=== PATIENT | female | born 1960 | race Caucasian/White ===

== ENCOUNTER 2018-03-20 05:03 | Inpatient (IN) | payer BC ==
[2018-03-15 13:19] VITALS: BMI 34.2
[~2018-03-20 05:03] MED LIST: ceFAZolin SODIUM 1 GM VIAL IVPB ONE
[2018-03-20] MEDS ORDERED: ROPIVACAINE HCL 0.5% 30ML VIAL ONE (08:41)
[2018-03-20] MEDS ORDERED: MIDAZOLAM HCL 2 MG/2 ML SINGLE DOSE VIAL ONE ×2 (08:44)
--- NOTE | 2018-03-20 08:57 | HP ---
History & Physical Update - History History: No Change - Physical Physical: No Change - Assessment Assessment: No Change - Plan Plan: No Change (since visit on 03/15/18)
[2018-03-20] MEDS ORDERED: CEFAZOLIN 2 GM in DEXTROSE 5%-WATER - 100 ML IVPB ONE (08:59)
[2018-03-20] MEDS ORDERED: fentaNYL CITRATE 250 MCG/5 ML VIAL ONE ×2 (09:17→09:49)
[2018-03-20] MEDS ORDERED: LIDOCAINE HCL/PF 2% SDV 5ML VIAL ONE (09:17)
[2018-03-20] MEDS ORDERED: PROPOFOL 20 ML ONE ×2 (09:18)
[2018-03-20] MEDS ORDERED: ROCURONIUM BROMIDE 50 MG/5 ML VIAL ONE ×2 (09:18→10:12)
[2018-03-20] MEDS ORDERED: ceFAZolin SODIUM 1 GM VIAL ONE ×2 (09:26→17:15)
[2018-03-20] MEDS ORDERED: ceFAZolin SODIUM 1 GM VIAL IVPB ONE (09:29)
[2018-03-20] MEDS ORDERED: NEOSTIGMINE METHYLSULFATE 0.5 MG/ML - 10 ML MDV ONE (09:34)
[2018-03-20] MEDS ORDERED: DEXAMETHASONE SOD PHOSPHATE 4 MG/1 ML VIAL ONE (09:34)
[2018-03-20] MEDS ORDERED: GLYCOPYRROLATE 0.2 MG/1 ML VIAL ONE (09:34)
[2018-03-20] MEDS ORDERED: ONDANSETRON 4 MG/2 ML VIAL IVPUSH PRN (12:35)
[2018-03-20] MEDS ORDERED: LACTATED RINGERS SOLUTION 1,000 ML IV SCH (12:45)
[2018-03-20] MEDS ORDERED: HYDROmorphone *PCA* 10MG/50ML DISP.SYRIN PCA SCH (12:45)
[2018-03-20] MEDS ORDERED: LACTATED RINGERS SOLUTION 1,000 ML/1,000 ML INFUS.BAG IV SCH (13:15)
--- NOTE | 2018-03-20 13:29 | OP ---
Operative Note - Note: Operative Date: 03/20/18 Pre-Operative Diagnosis: abdominal pain. leiomyoma uterus Operation: Total Abdominal Hysterectomy Bilateral salpingectomy-oorphoectomy Findings: Ovarian/ tubal mass Post-Operative Diagnosis: Other (ovarian and tubal mass frozen pathology suspicious for malignancy) Surgeon: Zulma Elizalde Appliances Sample Maker: Estela Solano Anesthesiologist/AIR HOSE COUPLER: Jessica Olivia Anesthesia: General Specimens Removed: uterus. bilateral fallopian tubes and overies Estimated Blood Loss (mls): 1,700 Drains, Volume Out (mls): 400 (pathak ) Blood Volume Replaced (mls): 2 (Units PRBC) Fluid Volume Replaced (mls): 4,500 Operative Report Dictated: Yes
--- NOTE | 2018-03-20 13:38 | SURG ---
Surgery Operations Welder Note Operations Welder: Estela Solano PA-C Date of Service: 03/20/18 Diagnosis: abdominal pain leiomyoma of uterus Procedure: Total abdominal hysterectomy bilateral salpingectomy-oorphorectomy I was present for the entirety of the operative procedure. For further detail, please refer to operative report. Visit type - Case Type Case Type: Scheduled - Emergency Emergency Visit: No - New patient This patient is new to me today: Yes Date on this admission: 03/20/18
[2018-03-20] MEDS ORDERED: DEXTROSE 5%-WATER - 50 ML IVPB ONE (17:15)
[2018-03-20] MEDS: CEFAZOLIN 1 GM in DEXTROSE 5%-WATER - 50 ML IVPB SCH (17:41)
[2018-03-20 18:43] LABS: HEMATOCRIT 34.1 % (32.4-45.2); HEMOGLOBIN 11.3 GM/dL (10.7-15.3); MCH 28.7 pg (25.7-33.7); MCHC 33.3 g/dl (32.0-36.0); MEAN CELL VOLUME 86.3 fl (80-96); MEAN PLT VOLUME 7.9 fl (7.5-11.1); PLATELET COUNT 250 K/MM3 (134-434); RBC 3.95 M/mm3 (3.60-5.2); RDW 14.7 % (11.6-15.6); WHITE BLOOD COUNT 14.4 K/mm3 (4.0-10.0)
[2018-03-20 19:02] LABS: ALBUMIN 2.6 g/dl (3.4-5.0); ALK PHOS 70 U/L (45-117); ANION GAP 6 (8-16); BILIRUBIN,TOTAL 0.9 mg/dL (0.2-1.0); BLOOD UREA NITROGEN 14 mg/dL (7-18); CALCIUM 7.5 mg/dL (8.5-10.1); CHLORIDE 105 mmol/L (98-107); CO2 28 mmol/L (21-32); CREATININE 0.8 mg/dL (0.55-1.02); GLUCOSE,RANDOM 138 mg/dL (74-106); POTASSIUM 5.3 mmol/L (3.5-5.1); SGOT/AST 13 U/L (15-37); SGPT/ALT 18 U/L (12-78); SODIUM 139 mmol/L (136-145); TOT PROT 5.4 g/dl (6.4-8.2)
[2018-03-20] MEDS: ATORVASTATIN CA 10 MG TABLET (FP) PO SCH (22:11)
[2018-03-21] MEDS ORDERED: DEXTROSE 5%-WATER - 50 ML IVPB ONE (01:15)
[2018-03-21] MEDS ORDERED: ceFAZolin SODIUM 1 GM VIAL ONE (01:15)
[2018-03-21] MEDS: CEFAZOLIN 1 GM in DEXTROSE 5%-WATER - 50 ML IVPB SCH (01:21)
[2018-03-21 08:32] LABS: HEMATOCRIT 26.4 % (32.4-45.2); MCH 29.4 pg (25.7-33.7); MCHC 33.9 g/dl (32.0-36.0); MEAN CELL VOLUME 86.7 fl (80-96); MEAN PLT VOLUME 7.9 fl (7.5-11.1); PLATELET COUNT 172 K/MM3 (134-434); RBC 3.05 M/mm3 (3.60-5.2); RDW 15.1 % (11.6-15.6)
--- NOTE | 2018-03-21 09:00 | PN ---
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 No anesthesia complications.
--- NOTE | 2018-03-21 09:43 | PN ---
Progress Note (short form) - Note Progress Note: Surgery POD #1 BRITTANY BSO patient seen and examined at bedside with no c/o. Patient states pain is controlled on MEAT CLERK and she only has discomfort with movement. She is tolerating her clear diet and denies any CP, SOB, N/V/ Fever or chills. Vital Signs Temp 98.5 F 03/21/18 06:00 Pulse 75 03/21/18 06:00 Resp 18 03/21/18 06:00 BP 89/46 03/21/18 06:00 Pulse Ox 100 03/20/18 15:00 Intake & Output 03/20/18 03/20/18 03/21/18 11:59 23:59 11:59 Intake Total 5200 1350 1450 Output Total 1700 750 500 Balance 3500 600 950 Intake: IV 4500 1000 1100 LACTATED RINGERS SOLUTION 500 1100 1,000 ml In 1,000 ml @ 100 mls/hr IV ASDIR SHON Rx#:[id number] IVPB 50 50 Oral 300 300 Blood Product 700 Output: Urine 750 500 Waddell 100 500 Estimated Blood Loss 1700 Other: Voiding Method Toilet CBC, BMP 03/21/18 07:15 PE: A&Ox3, NAD unlabored resp on RA abdomen: obese, soft non-distended with mild diffuse TTP throughout appropriate to status. incision c/d/i with steri strips intact and no evidence of active bleeding or d/c B/L LE compartments soft, supple and non-tender to palpation with + pedal pulses. Problem List - Problems (1) S/P BRITTANY-BSO (total abdominal hysterectomy and bilateral salpingo- oophorectomy) Assessment/Plan: POD#1 patient doing well with acute blood loss anemia slightly hypertensive but stable. 1) D/c MEAT CLERK start oral pain meds 2) Rpt Labs in the afternoon- trend H&H 3) Continue DVT prophylaxis b/l teds, scds and Lovenox 4) OOB as tolerated with assist 5) Hold antihypertensives while pressure remains low 6) Plan to advance diet once passing flatus Evaluation and plan discussed with Dr Elizalde Code(s): Z90.710 - ACQUIRED ABSENCE OF BOTH CERVIX AND UTERUS; Z90.722 - ACQUIRED ABSENCE OF OVARIES, BILATERAL; Z90.79 - ACQUIRED ABSENCE OF OTHER GENITAL ORGAN(S)
[2018-03-21] MEDS: ENOXAPARIN NA (PORCINE) 40 MG/0.4 ML DISP.SYRIN SQ SCH (10:05)
[2018-03-21] MEDS: FERROUS SO4 325 MG TABLET (FP) PO SCH (10:05)
--- NOTE | 2018-03-21 10:27 | OP ---
DATE OF OPERATION: 03/20/2018 PREOPERATIVE DIAGNOSIS: Abdominal pain, leiomyomatous uterus, submucosal myomas, intramural myomas. OPERATION: Total abdominal hysterectomy, bilateral salpingectomy and oophorectomy. FINDINGS: Probable uterine malignancy diagnosed by frozen section. SURGEON: Zulma Pedraza MD SPA ATTENDANT: KALYN Schulte ANESTHESIOLOGIST: Dr. Olivia ANESTHESIA: General. DESCRIPTION OF PROCEDURE: The patient was taken to the operating room and placed in supine position, prepped and draped in the usual sterile fashion. A time-out was performed in accordance with hospital regulation. Pfannenstiel skin incision was made with a scalpel. Cautery was then used to go through layers of the abdominal wall to the level of the fascia. The fascia was cut in the midline. Cautery was then used to open the fascia in a smiling fashion. Kochers were then used to bluntly and sharply dissect the rectus muscle off the fascia. Muscle was split in the midline. The peritoneal cavity was then entered. A 16-cm leiomyomatous uterus was then exteriorized. A large submucosal mass was palpated in the uterus and also adnexal region seemed very indurated mostly on the right side. Tubular aspect seemed like there was a possible tubo-ovarian abscess process going on on the right side as well as induration noted along the uterine vessels on the left. LigaSure was then used to coagulate and cut the round ligament on the left side. Infundibulopelvic ligament was identified and clamped and cut. Uterine vessels were then skeletonized, and uterine arteries were identified and clamped and cut on the left. Cardinal ligament was identified and clamped on the left. Again, some induration was noted on the left in the vascular region. Entry into the uterus was done, and some tissue was seen coming out of the uterus suspicious for a uterine malignancy. Specimen was then submitted to Pathology. Frozen section obtained revealed possible malignancy. Tubes and ovaries were removed on the left. Attention was then drawn on the right side where a tubo-ovarian complex was noted very indurated. Uteroovarian vessel was identified, clamped, and cut using LigaSure and also round ligament was identified, clamped, and cut. Uterine arteries had been clamped and cut, and cardinal ligaments were identified, clamped, and cut down to the level of the cervix. Vesicouterine reflection had been entered, and the bladder was bluntly dissected out of the operative field. Retractor had been placed, and vagina was then entered, and scissors were then used to cut the vagina away from the cervix. Specimen was then submitted to Pathology. An 0 Vicryl suture was then used to close the vaginal cuff in a continuous locking fashion. Hemostasis was achieved. Attention was then drawn to the right side where the indurated tubo-ovarian complex was identified, and infundibulopelvic ligament was identified, clamped, and cut, and tubes and ovary was submitted. Estimated blood loss was about 1700 mL. Waddell was noted to have clear urine. Ureters were identified and found to be persistalsing. Fluid volume given was about 4500. Interceed was placed on the cuff for further hemostasis after all bleeding was hemostatic. All packing was then removed, and peritoneum was then closed using 0 Vicryl suture. Muscle was approximated in the midline using 0 Vicryl suture. Fascia was then closed using 0 Vicryl suture in 2 parts. Subcutaneous was then closed with interrupted using 2-0 Vicryl, and the skin was then closed using 3-0 Vicryl in subcuticular fashion. The wound was washed and dressed. The patient had tolerated the procedure well. Pack count was correct. Again, ureters were identified and found to be peristalsis. ZULMA PEDRAZA M.D. [id number]
[2018-03-21] MEDS ORDERED: ACETAMINOPHEN 325 MG TABLET (FP) PO PRN (10:47)
[2018-03-21] MEDS ORDERED: oxyCODONE HCL 5 MG TABLET PO PRN (10:47)
[2018-03-21] MEDS: CYANOCOBALAMIN 1,000 MCG TABLET (FP) PO SCH (10:52)
[2018-03-21] MEDS: SIMETHICONE 80 MG TAB.CHEW (FP) PO PRN ×4 (10:52→22:27)
[2018-03-21] MEDS ORDERED: PCA PUMP KEY 1 EACH EACH ONE (11:50)
[2018-03-21 12:46] LABS: ALBUMIN 2.4 g/dl (3.4-5.0); ALK PHOS 60 U/L (45-117); ANION GAP 8 (8-16); BILIRUBIN,TOTAL 0.5 mg/dL (0.2-1.0); BLOOD UREA NITROGEN 18 mg/dL (7-18); CALCIUM 7.8 mg/dL (8.5-10.1); CHLORIDE 103 mmol/L (98-107); CO2 27 mmol/L (21-32); CREATININE 0.7 mg/dL (0.55-1.02); GLUCOSE,RANDOM 97 mg/dL (74-106); POTASSIUM 4.3 mmol/L (3.5-5.1); SGOT/AST 18 U/L (15-37); SGPT/ALT 20 U/L (12-78); SODIUM 138 mmol/L (136-145); TOT PROT 4.8 g/dl (6.4-8.2)
[2018-03-21] MEDS: HYDROCHLOROTHIAZIDE 12.5 MG CAPSULE (FP) PO SCH (13:39)
[2018-03-21] MEDS: VALSARTAN 160 MG TABLET (UD) PO SCH (13:39)
[2018-03-21] MEDS: ACETAMINOPHEN 325 MG TABLET (FP) PO PRN ×3 (13:59→22:25)
[2018-03-21] MEDS: oxyCODONE HCL 5 MG TABLET PO PRN ×3 (14:02→22:26)
[2018-03-21 14:06] LABS: HEMATOCRIT 27.2 % (32.4-45.2); HEMOGLOBIN 9.2 GM/dL (10.7-15.3); MCH 29.3 pg (25.7-33.7); MCHC 33.7 g/dl (32.0-36.0); MEAN PLT VOLUME 7.9 fl (7.5-11.1); PLATELET COUNT 182 K/MM3 (134-434); RBC 3.12 M/mm3 (3.60-5.2); RDW 15.2 % (11.6-15.6); WHITE BLOOD COUNT 10.4 K/mm3 (4.0-10.0)
[2018-03-21] MEDS: ATORVASTATIN CA 10 MG TABLET (FP) PO SCH (22:25)
[2018-03-22 08:06] LABS: HEMATOCRIT 24.8 % (32.4-45.2); HEMOGLOBIN 8.4 GM/dL (10.7-15.3); MCH 29.4 pg (25.7-33.7); MEAN CELL VOLUME 86.6 fl (80-96); MEAN PLT VOLUME 7.7 fl (7.5-11.1); PLATELET COUNT 181 K/MM3 (134-434); RBC 2.86 M/mm3 (3.60-5.2); RDW 14.9 % (11.6-15.6); WHITE BLOOD COUNT 8.8 K/mm3 (4.0-10.0)
[2018-03-22 08:26] LABS: CHLORIDE 101 mmol/L (98-107); SODIUM 136 mmol/L (136-145)
[2018-03-22 08:51] LABS: ALBUMIN 2.6 g/dl (3.4-5.0); ALK PHOS 92 U/L (45-117); ANION GAP 5 (8-16); BILIRUBIN,TOTAL 0.4 mg/dL (0.2-1.0); BLOOD UREA NITROGEN 9 mg/dL (7-18); CALCIUM 7.8 mg/dL (8.5-10.1); CO2 30 mmol/L (21-32); CREATININE 0.6 mg/dL (0.55-1.02); GLUCOSE,RANDOM 117 mg/dL (74-106); SGOT/AST 26 U/L (15-37); SGPT/ALT 26 U/L (12-78); TOT PROT 5.5 g/dl (6.4-8.2)
[2018-03-22] MEDS: ENOXAPARIN NA (PORCINE) 40 MG/0.4 ML DISP.SYRIN SQ SCH (09:11)
[2018-03-22] MEDS: MAGNESIUM OXIDE 400 MG TABLET (FP) PO SCH ×2 (09:12→09:23)
[2018-03-22] MEDS: CYANOCOBALAMIN 1,000 MCG TABLET (FP) PO SCH (09:12)
[2018-03-22] MEDS: FERROUS SO4 325 MG TABLET (FP) PO SCH (09:12)
[2018-03-22] MEDS: HYDROCHLOROTHIAZIDE 12.5 MG CAPSULE (FP) PO SCH (09:22)
[2018-03-22] MEDS: VALSARTAN 160 MG TABLET (UD) PO SCH (09:22)
[2018-03-22] MEDS: FOLIC ACID 1 MG TABLET (FP) PO SCH ×2 (09:23→09:24)
[2018-03-22 11:09] VITALS: BP 107/58; PULSE 73; TEMP 99.7
== END 2018-03-22 12:50 | disposition home or self-care (01) | DRG 743 ==
LOC: JSAMEDAYSX 05:03 → EDSTATUS 08:00 → J3W 15:45
PROVIDERS: ADMIT Obstetrics & Gynecology; ATTEND Obstetrics & Gynecology
PROC: 0UT70ZZ Resection of Bilateral Fallopian Tubes, Open Approach (ICD-10-PCS; 2018-03-20)
PROC: 0UT20ZZ Resection of Bilateral Ovaries, Open Approach (ICD-10-PCS; 2018-03-20)
PROC: 0UT90ZZ Resection of Uterus, Open Approach (ICD-10-PCS; principal; 2018-03-20 09:00)
DX: D25.0 Submucous leiomyoma of uterus (principal); I95.9 Hypotension, unspecified; Z90.710 Acquired absence of both cervix and uterus; E78.5 Hyperlipidemia, unspecified; I10 Essential (primary) hypertension; D64.9 Anemia, unspecified; E66.9 Obesity, unspecified; Z68.34 Body mass index [BMI] 34.0-34.9, adult
CPT/HCPCS: 36415; 36430; 80053; 85027; 86850; 86900; 86901; 86922; 94760; P9038; P9058